=== PATIENT | female | born 1975 | race African-American/Black ===

== ENCOUNTER 2016-12-15 23:54 | Emergency (ER) | payer OTHER ==
[2016-12-16 02:45] VITALS: BP 142/93
== END 2016-12-16 02:45 | disposition home or self-care (01) ==
LOC: ED 23:54
DX: J20.9 Acute bronchitis, unspecified (principal); Z79.899 Other long term (current) drug therapy
CPT/HCPCS: J7510; J7620; Q0092

== ENCOUNTER 2017-12-27 14:06 | Emergency (ER) | payer OTHER ==
[~2017-12-27] VITALS: Ht 160 cm; Wt 79.8 kg
[2017-12-27 14:11] VITALS: BP 119/72; Ht 160 cm; Wt 79.8 kg
== END 2017-12-27 16:11 | disposition left against medical advice (07) ==
LOC: ED 14:06
DX: Z53.21 Procedure and treatment not carried out due to patient leaving prior to being seen by health care provider (principal)